=== PATIENT | female | born 1980 | race Caucasian/White ===

== ENCOUNTER 2016-08-04 06:05 | Day surgery (SDC) | payer OTHER ==
--- NOTE | 2016-08-03 22:40 | HP ---
XIN HESS [id number] HISTORY OF PRESENT ILLNESS: Xin is a 36-year-old who presents to clinic with complaints of pain on the outside of her left foot. She has a history of a metatarsal fracture here several years ago that was fixated with a paraprofessional aide teacher the shaft of the bone. She says over the past few months the foot has gotten progressively more painful in this area. She had no other complaints. PAST MEDICAL HISTORY: Significant for: 1. Uterine cancer. 2. Restless leg syndrome. 3. Anemia. ALLERGIES: No known drug allergies. CURRENT MEDICATIONS: She is on just a painkiller. PAST SURGICAL HISTORY: 1. She has had a tumor removed from her uterus. 2. She has had foot surgery back in 2012 for the fracture of the left foot. FAMILY HISTORY: Significant for hypertension and asthma. SOCIAL HISTORY: She states no alcohol usage. One pack use a day of tobacco. PHYSICAL EXAMINATION: VITAL SIGNS: Showed a blood pressure of 130/82 and pulse of 81 and regular. HEENT: Head is normocephalic. External exam of the ears and eyes is negative. Throat shows no masses or inflammation. NECK: Shows no lymphadenopathy. LUNGS: Clear to auscultation in all wall. HEART: Regular rate and rhythm. LOWER EXTREMITIES: Pedal pulses intact. Filling time of two seconds. Color of skin is pink. NEUROLOGICAL: Gross sensation intact. DERMATOLOGIC: Temperature, texture and turgor are within normal limits. There is positive hair growth at the digits. MUSCULOSKELETAL: She has pain along the lateral side of the left foot in the area of the styloid process on the left side. IMAGING: X-rays show her fracture has broken-down. She has fragments of bone at the base of the styloid process, with a prominent head of the screw coming off the metatarsal shaft. PLAN: We are scheduling her for removal of bone fragment and painful hardware of left metatarsal. This will be done under MAC sedation with a local anesthetic block. All risks and complications inherent to the procedure are gone over with the patient and she understands these. There are no contraindications in her medical history at this time. She is scheduled for this procedure at [facility] on 08/04/2016. Job #[id number]
[~2016-08-04 06:05] MED LIST: CEFAZOLIN SODIUM 2 GRAM PREMIX 100 ML IV ONE; CEFAZOLIN SODIUM 2 GRAM PREMIX 100 ML IV PRN; IV START KIT ONE; LACTATED RINGERS 1,000 ML ONE
[2016-08-04] MEDS ORDERED: LIDOCAINE 1% (PRES FREE) 30 ML VIAL ONE (06:43)
[2016-08-04] MEDS ORDERED: BUPIVACAINE 0.5% (PRES FREE) 30 ML VIAL ONE ×2 (06:43→08:00)
[2016-08-04 06:44] LABS: HEMATOCRIT 41.4 % (37.0-47.0); HEMOGLOBIN 13.5 gm/l (12.0-16.0)
[2016-08-04] MEDS ORDERED: MIDAZOLAM HCL 1 MG/ML 2ML VIAL ONE (07:05)
[2016-08-04] MEDS ORDERED: KETAMINE HCL UD SYRINGE 100 MG/2 ML IV ONE (07:12)
[2016-08-04] MEDS ORDERED: PROPOFOL 60 ML IV ONE (07:46)
--- NOTE | 2016-08-04 08:09 | RAD ---
FOOT - LEFT 2 VIEW HISTORY: Intraoperative fluoroscopy, ORIF left foot. COMPARISONS: Intraoperative fluoroscopy 10/24/2013 FINDINGS: Single overhead fluoroscopic image is provided for review. This image demonstrates probable resection of the lateral base of the fifth metatarsal. Single screw is noted. Study is limited with respect osseous detail given fluoroscopic technique. IMPRESSION: Intraoperative fluoroscopy as above. Please see operative note regarding the procedure for further details.
[2016-08-04] MEDS ORDERED: ON-Q PUMP/ROPIVACAINE 0.2% 450 ML ONE (08:17)
[2016-08-04] MEDS ORDERED: ON-Q PUMP/ROPIVACAINE 0.2% 400 ML in PREMIX BAG 1 EACH NB SCH (08:33)
[2016-08-04] MEDS ORDERED: OXYCODONE HCL 5 MG TABLET PO ONE (08:33)
[2016-08-04] MEDS ORDERED: OXYCODONE HCL 10 MG TAB.SR PO ONE (08:45)
--- NOTE | 2016-08-08 12:38 | OP ---
Xin Spann DATE OF SURGERY: 08/04/2016 SURGEON: Raymond Siddiqi M.D. PREOPERATIVE DIAGNOSIS: Painful bone fragments and hardware fifth metatarsal base, left foot. POSTOPERATIVE DIAGNOSIS: Painful bone fragments and hardware fifth metatarsal base, left foot. PROCEDURE: Removal of bone fragments and removal of painful hardware fifth metatarsal shaft base, left foot. ANESTHESIA: Monitored anesthesia care sedation and local block using 20 mL of 1% Lidocaine and 0.5% Marcaine block to the left foot. HEMOSTASIS: Ankle tourniquet inflated to 250 mmHg for a total of 38 minutes left ankle. ESTIMATED BLOOD LOSS: Less than 10 mL. MATERIALS: 3-0 Vicryl, 3-0 Prolene. DESCRIPTION OF PROCEDURE: The patient was brought into the operating room and laid on the operating room table in supine position. After she was adequately sedated we anesthetized the foot with the above anesthetic block. Prepped and draped the foot in the standard sterile fashion. Using an Esmarch we exsanguinated blood from the left foot and inflated the ankle tourniquet at this time. Attention was drawn to the lateral side of the left foot where a longitudinal incision was made just proximal to the fifth metatarsal base over the old incision. This incision was extended about 4 cm and deepened into the epidermis and dermis. All superficial vessels were bovied cautery using Metzenbaum scissors. We deepened this through the subcutaneous tissue down to the base of the fifth metatarsal base. At this point using sharp dissection we made a longitudinal incision over the base of the fifth metatarsal. We reflected the capsular tissues and tendinous tissues off the styloid process of metatarsal. This gave adequate exposure to the head of the screw and to the fracture fragments. Using the same sharp dissection we dissected out two fracture fragmented pieces. First piece was approximately 4 x 4 mm in diameter, second piece 2 x 3 mm in diameter. These were not sent at this time. The bone itself just looked dull and redd in appearance suggestive of nonhealing bone. At this point, we were able to visualize the head of the screw. We placed a hyster driver over the head and back out the screw completely. We then took the bone delma and burred the base of the bone smooth and round, and cleaned off the edges. Once we had adequate removal of the fragments of the bone and the painful hardware we placed an On-Q pain pump in the wound and checked its function. We then went ahead and irrigated the wound with saline, closed the periosteum and joint capsule back together with 3-0 Vicryl in a running fashion. Closed the skin with 3-0 Prolene in a horizontal mattress fashion. Patient tolerated the procedure well. The wound was dressed with Xeroform gauze sterile dressings. She left the operating room for recovery with vital signs stable and in no apparent distress. JOB: [id number]
== END 2016-08-04 09:10 | disposition home or self-care (01) ==
LOC: SDC 06:05
PROVIDERS: ATTEND Podiatrist
PROC: 0QPP04Z Removal of Internal Fixation Device from Left Metatarsal, Open Approach (ICD-10-PCS; principal; 2016-08-04)
DX: T84.84XA Pain due to internal orthopedic prosthetic devices, implants and grafts, initial encounter (principal); S92.352S Displaced fracture of fifth metatarsal bone, left foot, sequela; F17.210 Nicotine dependence, cigarettes, uncomplicated; Z85.42 Personal history of malignant neoplasm of other parts of uterus; G25.81 Restless legs syndrome; Z79.899 Other long term (current) drug therapy